=== PATIENT | male | born 1965 | race Caucasian/White ===

== ENCOUNTER 2017-04-07 08:46 | Emergency (ER) | payer SELFPAY ==
[~2017-04-07] VITALS: Ht 182.9 cm; Wt 85.0 kg
[~2017-04-07 08:46] MED LIST: BACT800T5 PO; DOXY100T PO; PERC5TAB12 PO
[2017-04-07 08:48] VITALS: BP 151/83; PULSE 78; RESP 18; TEMP 97.8; O2SAT 95
[2017-04-07] MEDS ORDERED: KETOROLAC TROMETHAMINE 60 MG/2 ML (IM) VIAL IM ONE (09:30)
[2017-04-07] MEDS ORDERED: METHOCARBAMOL 500 MG TAB PO ONE (09:30)
[2017-04-07 09:34] LABS: BILIRUBIN, URINE NEG (NEG); BLOOD, URINE NEG (NEG); GLUCOSE,URINE NEG (NEG); KETONE, URINE NEG (NEG); NITRITE,URINE NEG (NEG); URINE LEUKOCYTE ESTERASE NEG (NEG)
[2017-04-07 09:41] LABS: SQUAMOUS EPITHELIAL CELL URINE 0-1 /hpf (0-5); URINE COLOR STRAW (YELLW/STRAW); WBC, URINE 0-2 /hpf (0-5)
--- NOTE | 2017-04-07 10:26 | RADRPT ---
EXAM DATE/TIME: 04/07/2017 09:50 [place] COMPARISON: No previous studies available for comparison. INDICATIONS : Bilateral flank pain for two weeks. ORAL CONTRAST: No oral contrast ingested. RADIATION DOSE: 15.69 CTDIvol (mGy) MEDICAL HISTORY : None SURGICAL HISTORY : None. ENCOUNTER: Initial ACUITY: 2 weeks PAIN SCALE: 6/10 LOCATION: Bilateral flank TECHNIQUE: Volumetric scanning of the abdomen and pelvis was performed. Using automated exposure control and ad justment of the mA and/or kV according to patient size, radiation dose was kept as low as reasonably achievable to obtain optimal diagnostic quality images. DICOM format image data is available electro nically for review and comparison. FINDINGS: LOWER LUNGS: The visualized lower lungs are clear. LIVER: Homogeneous density without lesion. There is no dilation of the biliary tree. No calcified gallston es. SPLEEN: Normal size without lesion. PANCREAS: Within normal limits. KIDNEYS: Normal in size and shape. There is no mass or hydronephrosis. There is a 5 x 4 mm nonobstructing sto ne in the left lower pole collecting system. No ureteral stones are present. ADRENAL GLANDS: Within normal limits. VASCULAR: There is no aortic aneurysm. There is mild atherosclerotic disease. BOWEL/MESENTERY: The stomach, small bowel, and colon demonstrate no acute abnormality. There is no free intraperitone al air or fluid. There is mild sigmoid diverticulosis. ABDOMINAL WALL: Within normal limits. RETROPERITONEUM: There is no lymphadenopathy. BLADDER: No wall thickening or mass. REPRODUCTIVE: Within normal limits. INGUINAL: There is no lymphadenopathy or hernia. MUSCULOSKELETAL: There are mild degenerative changes of the lumbar spine. CONCLUSION: 1. There is a 5 mm nonobstructing left lower pole renal stone. No other renal stones are present and there are no ureteral stones or signs of urinary obstruction. 2. Nonacute findings include mild atherosclerotic disease and mild sigmoid diverticulosis. Juan Jackson MD on April 07, 2017 at 10:11 Board Certified Radiologist. This report was verified electronically.
[2017-04-07] MEDS ORDERED: DICL75TA PO (10:28)
[2017-04-07] MEDS ORDERED: ROBA500T PO (10:28)
--- NOTE | 2017-04-07 10:34 | PD ---
HPI Chief Complaint: Musculoskeletal Complaint Time Seen by Provider: 09:18 Travel History International Travel<30 days: No Contact w/Intl Traveler<30days: No Traveled to known affect area: No History of Present Illness HPI 50-year-old male that presents to the ED for evaluation of bilateral flank pain. Per patient she's had this for 2-3 weeks. Per patient is not getting better. Per patient he comes and goes but more present than not. Per patient the pain is on both flanks. Per patient his urine has been darker than usual. Denies any other symptoms. Per patient does get worse with certain motions. Sitting and standing makes it worse. 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 He denies any particular injury to her about. States the pain gets to be 7 out of 10. Has been taking anything for this. Has not seen anybody for this. No allergies to medication. No other medical issues at this time. No numbness, tingling, weakness. No bowel movement issues. No saddle anesthesia like symptoms. PFSH Past Medical History Hx Anticoagulant Therapy: No Cancer: No Cardiovascular Problems: No Chemotherapy: No Cerebrovascular Accident: No Diabetes: No Diminished Hearing: No Hepatitis: No Hiatal Hernia: No Hypertension: No Respiratory: No Thyroid Disease: No Influenza Vaccination: Yes Past Surgical History Abdominal Surgery: No Cardiac Surgery: No Ear Surgery: No Endocrine Surgery: No Eye Surgery: No Genitourinary Surgery: No Neurologic Surgery: No Oral Surgery: Yes (TONSILLECTOMY) Pacemaker: No Thoracic Surgery: No Other Surgery: Yes (VASECTOMY) Social History Alcohol Use: Yes (OCC) Tobacco Use: No Substance Use: No Allergies-Medications (Allergen,Severity, Reaction): Coded Allergies: *MDRO Multi-Drug Resistant Organism (Verified Adverse Reaction, Unknown, ) 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 Reported Meds & Prescriptions Reported Meds & Active Scripts Active Robaxin (Methocarbamol) 500 Mg Tab 500 Mg PO TID Diclofenac Sodium DR (Diclofenac Sodium) 75 Mg Tabdr 75 Mg PO BID PRN Review of Systems Except as stated in HPI: all other systems reviewed are Neg Physical Exam Narrative GENERAL: SKIN: Warm and dry. HEAD: Atraumatic. Normocephalic. EYES: Pupils equal and round. No scleral icterus. No injection or drainage. ENT: No nasal bleeding or discharge. Mucous membranes pink and moist. NECK: Trachea midline. No JVD. CARDIOVASCULAR: Regular rate and rhythm. RESPIRATORY: No accessory muscle use. Clear to auscultation. Breath sounds equal bilaterally. GASTROINTESTINAL: Abdomen soft, non-tender, nondistended. Hepatic and splenic margins not palpable. MUSCULOSKELETAL: Extremities without clubbing, cyanosis, or edema. No obvious deformities. Patient has reproducible pain on the flanks bilaterally. No obvious CVA tenderness however. Most of the pain appears to be in the lumbar musculature bilaterally. No spinous processes pain noted. No obvious deformity noted. Straight leg test negative bilaterally. NEUROLOGICAL: Awake and alert. No obvious cranial nerve deficits. Motor grossly within normal limits. Five out of 5 muscle strength in the arms and legs. Normal speech. PSYCHIATRIC: Appropriate mood and affect; insight and judgment normal. Data Data Last Documented VS Vital Signs Date Time Temp Pulse Resp B/P (MAP) Pulse Ox O2 Delivery O2 Flow Rate FiO2 04/07/17 08:48 97.8 78 18 151/83 (105) 95 Orders Orders Urinalysis - C+S If Indicated (04/07/17 09:22) Ct Abd/Pel W/O Iv Contrast (04/07/17 ) Ketorolac Inj (Toradol Inj) (04/07/17 09:30) Methocarbamol (Robaxin) (04/07/17 09:30) Ed Discharge Order (04/07/17 10:28) Labs Laboratory Tests Test 04/07/17 09:25 Urine Collection Type VOIDED Urine Color STRAW Urine Turbidity CLEAR Urine pH 6.0 Urine Specific [place] 1.005 Urine Protein NEG mg/dL Urine Glucose (UA) NEG mg/dL Urine Ketones NEG mg/dL Urine Occult Blood NEG Urine Nitrite NEG Urine Bilirubin NEG Urine Leukocyte Esterase NEG Urine WBC 0-2 /hpf Urine Squamous Epithelial Cells 0-1 /hpf Microscopic Urinalysis Comment CULT NOT INDICATED MDM Medical Decision Making Medical Screen Exam Complete: Yes Emergency Medical Condition: Yes Medical Record Reviewed: Yes Interpretation(s) Urine did not show any sign of blood or bacteria or signs of infection at all. CT of the abdomen and pelvis did show a left 0.5 cm kidney stone that is nonobstructing and is currently not passing. Still on the kidney. Otherwise negative exam other than some arthritis to the lower back. Differential Diagnosis Back pain versus muscle strain versus kidney stone versus UTI versus pyelonephritis Narrative Course 50-year-old male that presents to the ED for evaluation of flank pain. Patient was properly examined and was found to have signs and symptoms consistent appears to be likely muscle skeletal pain. 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 He denies any particular injury. Pain is reproducible with range of motion. and patient are concerned more about infection as patient apparently has changed color and has had some issues with her kidneys. Urine was done. CT was ordered. CT and urine were negative for infection but does appear to have a left kidney stone that appears to be nonobstructing at this time. Unclear if this is the source of the pain as patient has bilateral flank pain. I do suspect this is more muscular than kidney. We'll treat with anti-inflammatory and pain medication. Given note for work. Told to apply warm compresses to the back. Follow with PCP. See ED worsening symptoms. Diagnosis Primary Impression: Lumbar strain Qualified Codes: S39.012A - Strain of muscle, fascia and tendon of lower back , initial encounter Additional Impression: Kidney stone on left side Patient Instructions: General Instructions Departure Forms: Tests/Procedures, Work Release Enter return to work date: Apr 11, 2017 Additional Instructions: Take medications as prescribed. Follow-up with PCP. See ED for any worsening symptoms. Do not drink or drive while taking pain medication. Apply ice or heat as needed for pain Med/Other Pt SpecificInfo: Prescription(s) given Scripts Methocarbamol (Robaxin) 500 Mg Tab 500 MG PO TID for Muscle Spasm, #20 TAB 0 Refills Prov: Rosendo Navarrete MD 04/07/[address] (Diclofenac Sodium DR) 75 Mg Tabdr 75 MG PO BID Y for PAIN SCALE 1 TO 10, #20 TAB 0 Refills Prov: Rosendo Navarrete MD 04/07/17 Disposition: 01 DISCHARGE HOME Condition: Stable Manuel Junior Apr 07, 2017 10:34
[2017-04-07] MEDS ORDERED: HYDR-3516 PO (10:36)
== END 2017-04-07 11:00 | disposition home or self-care (01) ==
LOC: PHEFT 08:46
DX: S39.012A Strain of muscle, fascia and tendon of lower back, initial encounter (principal); N20.0 Calculus of kidney
CPT/HCPCS: 74176; 81001; 96372; 99284; J1885